=== PATIENT | male | born 1995 | race African-American/Black ===

== ENCOUNTER 2021-11-21 10:58 | Emergency (ER) | payer MEDICAID ==
[~2021-11-21] VITALS: Ht 175.3 cm; Wt 72.7 kg
[2021-11-21] MEDS ORDERED: TRAZ-252 PO (11:03)
[2021-11-21] MEDS ORDERED: SERT-162 PO (11:03)
[2021-11-21 11:56] LABS: BASOPHILS % (AUTO) 1.9 % (0.0-2.0); EOSINOPHILS % (AUTO) 0.7 % (1.0-6.0); HEMATOCRIT 47.8 % (41-53); HEMOGLOBIN 15.7 g/dL (13.5-17.5); LYMPHOCYTES # (AUTO) 1.2 K/uL (1.0-4.8); LYMPHOCYTES % (AUTO) 24.4 % (22.0-44.0); MEAN CORPUSCULAR HEMOGLOBIN 26.6 pg (26.0-34.0); MEAN CORPUSCULAR HGB CONC 32.8 G/dL (31.0-37.0); MEAN CORPUSCULAR VOLUME 81 fL (80-100); MONOCYTES # (AUTO) 0.4 K/uL (0.1-1.0); MONOCYTES % (AUTO) 8.4 % (2.0-9.0); NEUTROPHILS # (AUTO) 3.3 K/uL (1.8-7.7); NEUTROPHILS % (AUTO) 64.6 % (40.0-70.0); PLATELET COUNT (AUTO) 243 K/uL (150-450); RED BLOOD CELL COUNT(AUTO) 5.89 MIL/uL (4.50-5.90); RED CELL DISTRIBUTION WIDTH 13.1 % (11.5-14.5)
[2021-11-21 11:59] LABS: ANION GAP 8 mmol/L (8-16); CALCIUM, TOTAL 9.2 mg/dL (8.8-10.5); CARBON DIOXIDE 29 mmol/L (22-29); CHLORIDE 101 mmol/L (98-107); CREATININE 1.03 mg/dL (0.60-1.30); GLUCOSE,RANDOM 126 mg/dL (70-110); POTASSIUM 4.1 mmol/L (3.5-5.1); SODIUM SERUM 138 mmol/L (136-145); UREA NITROGEN, BLOOD 13 mg/dL (7-18)
[2021-11-21 12:01] LABS: GLOMERULAR FILTR. RATE CALC > 60 mL/min (>60)
[2021-11-21 12:08] LABS: ALANINE AMINOTRANSFERASE 29 U/L (12-78); ALBUMIN 3.9 g/dL (3.4-5.0); ALKALINE PHOSPHATASE 95 U/L (46-116); ASPARTATE AMINOTRANSFERASE 21 U/L (15-37); BILIRUBIN,TOTAL 0.5 mg/dL (0.1-1.0); LIPASE 42 U/L (73-393); TOTAL PROTEIN, SERUM 7.5 g/dL (6.4-8.2)
[2021-11-21] MEDS ORDERED: ONDANSETRON HCL 4 MG/2 ML VIAL IVP ONE (12:30)
[2021-11-21] MEDS ORDERED: SODIUM CHLORIDE 0.9% 1,000 ML IV ONE (12:30)
[2021-11-21 13:34] LABS: APPEARANCE,URINE CLEAR (CLEAR); BILIRUBIN,URINE NEGATIVE (NEGATIVE); GLUCOSE, URINE (UA) NEGATIVE (NEGATIVE); KETONES,URINE NEGATIVE (NEGATIVE); LEUKOCYTE ESTERASE ,URINE NEGATIVE (NEGATIVE); NITRATE,URINE NEGATIVE (NEGATIVE); OCCULT BLOOD,URINE NEGATIVE (NEGATIVE); PH,URINE 6.5 (5.0-8.0); PROTEIN,URINE TRACE mg/dL (NEGATIVE); SPECIFIC GRAVITIY, URINE 1.033 (1.003-1.030); UROBILINOGEN,URINE <=1.0 mg/dL (<=1.0)
[2021-11-21] MEDS ORDERED: ACET-66 PO (15:05)
[2021-11-21] MEDS ORDERED: MAG30ORA11 PO (15:05)
[2021-11-21 15:16] VITALS: BP 130/76
== END 2021-11-21 15:18 | disposition home or self-care (01) ==
LOC: EMS 11:11
DX: R10.30 Lower abdominal pain, unspecified (principal); F41.9 Anxiety disorder, unspecified; F32.A Depression, unspecified; F12.90 Cannabis use, unspecified, uncomplicated
CPT/HCPCS: 99284; 74176; 96374; 96361; 80053; 81003; 83690; 85025; 36415; J2405; J7030

== ENCOUNTER 2022-02-18 17:35 | Emergency (ER) | payer MEDICAID ==
[~2022-02-18] VITALS: Ht 170.2 cm; Wt 72.7 kg
[~2022-02-18 17:35] MED LIST: ACET-66 PO; MAG30ORA11 PO; SERT-162 PO; TRAZ-252 PO
[2022-02-18] MEDS ORDERED: LIDOCAINE 5% TRANSDERMAL PATCH TD ONE (19:00)
[2022-02-18] MEDS ORDERED: IBUPROFEN 600 MG TABLET PO ONE (19:00)
[2022-02-18 19:11] VITALS: BP 133/74
== END 2022-02-18 19:19 | disposition home or self-care (01) ==
LOC: EMS 17:42
DX: M62.838 Other muscle spasm (principal); G44.209 Tension-type headache, unspecified, not intractable; R41.9 Unspecified symptoms and signs involving cognitive functions and awareness; F32.A Depression, unspecified; F12.90 Cannabis use, unspecified, uncomplicated
CPT/HCPCS: 99283